=== PATIENT | female | born 1970 | race Caucasian/White ===

== ENCOUNTER 2019-02-27 11:15 | Day surgery (SDC) | payer BC ==
[2019-02-24 10:00] VITALS: BMI 44.4
[~2019-02-27 11:15] MED LIST: DEXAMETHASONE SOD PHOSPHATE 10 MG/ML 1 ML VIAL IV ONE; HYDROmorphone 0.5 MG/0.5 ML SYRINGE IVP PRN; LACTATED RINGERS 1,000 ML IV SCH; MIDAZOLAM 2 MG/2 ML VIAL IV PRN; ONDANSETRON 4 MG/2 ML VIAL IVP ONE; SCOPOLAMINE 1.5MG/72HR PATCH TRANSDERM ONE; ceFAZolin 3 GM in SODIUM CHLORIDE 0.9% 100 ML IVPB ONE
[2019-02-27] MEDS ORDERED: LIDOCAINE 1% 20 ML VIAL (10MG/ML) FOR IV START INTRADERMA ONE (11:59)
[2019-02-27] MEDS ORDERED: PHENYLEPHRINE-0.9% NACL SYG 1 MG/10 ML SYRINGE ONE (12:53)
[2019-02-27] MEDS ORDERED: fentaNYL (PF) 50 MCG/ML 2 ML AMP ONE (12:53)
[2019-02-27] MEDS ORDERED: PROPOFOL 10 MG/ML 20 ML VIAL IV ONE (12:53)
[2019-02-27] MEDS ORDERED: MIDAZOLAM 2 MG/2 ML VIAL ONE (12:53)
[2019-02-27] MEDS ORDERED: HYDROmorphone (PF) 1 MG/ML ONE (12:53)
[2019-02-27] MEDS ORDERED: SUCCINYLCHOLINE CHLORIDE VIAL 200 MG/10 ML VIAL IV ONE (12:53)
[2019-02-27] MEDS ORDERED: LIDOCAINE 1% INJ 10MG/ML (20 ML MDV) ONE (12:53)
[2019-02-27] MEDS ORDERED: LACTATED RINGERS 1,000 ML IV ONE (15:12)
--- NOTE | 2019-02-27 15:28 | XR ---
Fluoroscopy INDICATION: Pain FINDINGS: Images obtained: 1. IMPRESSIONS: 1. Documentation of fluoroscopy.
--- NOTE | 2019-02-27 15:29 | FL ---
Fluoroscopy INDICATION: Pain FINDINGS: Fluoroscopy time: 7 seconds. Images obtained: 1. IMPRESSIONS: 1. Documentation of fluoroscopy.
[2019-02-27] MEDS ORDERED: ONDANSETRON 4 MG/2 ML VIAL IVP ONE (15:37)
[2019-02-27 15:38] VITALS: TEMP 97
--- NOTE | 2019-02-27 15:40 | P.OP ---
Date of Procedure: 02/27/19 Preoperative Diagnosis: 1. Right insertional Achilles tendinitis 2. Right gastorcnemius equinus contracture 3. BMI 44.4 Postoperative Diagnosis: Same Procedure(s) Performed: 1. Right insertional Achilles tendon debridement, Ursula's excision, and repa ir of Achilles tendon 2. Right FHL tendon transfer 3. Right gastrocnemius recession 4. Application of short leg splint by physician, right leg Anesthesia: VENTURA, regional Surgeon: Elías Cullen Pharmacy Picking Technician #1: Clara Hill Estimated Blood Loss (ml): 10 IV fluids (ml): 1,300 Pathology: none sent Condition: stable Disposition: PACU Indications for Procedure: The patient is a very pleasant previously healthy 48-year-old female with a medical history significant for having a BMI of 44 who presented to my office having failed over 1 year nonsurgical treatment for insertional Achilles tendinitis. She had previously had surgery on the left side I another physician and was well aware of the surgical procedure, recovery, risks etc. having failed over a year nonsurgical treatment she requested surgery. An MRI was obtained which showed insertional Achilles tendinitis, retrocalcaneal bursitis, and an enlarged Ursula's deformity. I discussed alternative treatments including nonsurgical modalities including stretching, use of a heel lift, physical therapy, NSAID medications, and activity modification. We also discussed surgery. The patient requested going forward with surgery. We discussed potential risks and competitions of surgery including but not limited to risk of anesthesia, superficial infection, deep infection, delayed wound healing, superficial wound necrosis, deep wound necrosis, rupture of her surgical repair, continued or worsened pain, recurrence, generalized to satisfaction with surgery, DVT, PE, other medical complications, and inability to regain preinjury level of function, and possibly loss of life or limb. The patient understands that due to her BMI of 44 she didn't increased risk of having a complication. She provided her verbal and written consent to go forward with surgery. Description of Procedure: The patient was identified in preoperative holding and the correct right leg was marked with my initials. I reviewed the consent form with the patient and her . All their questions were answered. The patient was given a popliteal nerve block by anesthesia. She was then brought back to the operating room. We'll stoma osvaldo she was given a general anesthetic and preoperative antibiotics by anesthesia. A tourniquet was applied to the proximal aspect of the right leg. The patient was then flipped into the prone position on the OR table. Her chest was supported with gel bolsters. All bony prominences were well-padded area the right leg was then prepped and draped in standard sterile fashion. Prior to starting surgery timeout was performed identifying the correct patient, operative extremity, and procedure. The patient's leg was then elevated, exsanguinated with an Esmarch bandage, and the tourniquet was inflated to 250 mmHg. I began by outlining a J type incision over the posterior tuberosity of the calcaneus with a longitudinal limb over the medial aspect of the Achilles tendon in the horizontal limb over the posterior tuberosity of the calcaneus just distal to the palpable spur. Skin incision was made with a scalpel and I took care not to undermine the skin incisions. A full-thickness flap was developed down to the level of the peritenon. The peritenon was sharply incised and then elevated off the Achilles tendon. The Achilles tendon was split in the distal midline down to the posterior tuberosity of the calcaneus and the medial and lateral leaflet was elevated sharply off of the tuberosity. The degenerative portion of the Achilles tendon was debrided back until healthy-appearing tendon remained. In my estimation over 50% of the Achilles tendon was debrided. The retrocalcaneal bursa appeared inflamed and was sharply debrided. A micr osagittal saw was used to remove the insertional spur and Ursula's deformity. The wound was thoroughly irrigated. The fascia over the FHL tendon was incised. The FHL tendon was identified. The ankle and big toe or plantarflexed and the tendon was cut as distal as possible. The tendon was whipstitched and sized 6 mm. The Portion of the posterior tuberosity was then marked out with the double row speed bridge repair. Anterior to this and central within the posterior tuberosity a Beath pin was placed for the FHL transfer from dorsal to plantar through the calcaneus and out the plantar foot. A cannulated reamer was used too great a path for the FHL tendon. The tendon and suture were passed plantarly. The sutures were tensioned and a Bio-Tenodesis screw was placed in the calcaneus nicely securing the FHL tendon. The bio composite screws with fiber taper placed in the proximal row. The sutures were passed through the medial and lateral limbs of the Achilles tendon. They were tensioned and then secured distally with the swivel lock suture anchors nicely reapproximating the Achilles footprint on the calcaneus. The Achilles repair appeared gomez. The wound was thoroughly irrigated. The midline split was closed with interrupted 2-0 Vicryl. A final fluoroscopic image was taken. At this point a Silfverskiold test was performed and there was a significant equinus contract ure. To take tension off of the repair a gastrocnemius recession was performed. A longitudinal incision was centered the posterior medial calf. Skin incision was made with a scalpel. Dissection was carried through the subcutaneous tissue with tenotomy scissors. The superficial fascia was sharply incised. The gastrocnemius aponeurosis was identified and sharply released. The plantaris tendon was cut. The wound was thoroughly irrigated and closed in layers with 2- 0 Vicryl in the deep subcu and 3-0 Monocryl subcuticular stitch in the skin. The Achilles wound was thoroughly irrigated. The peritenon was closed with a running 2-0 Vicryl. The deep subcu was reapproximated using 3-0 Monocryl. The skin was closed using 3-0 nylon Allgower modification of the Donati stitch. A sterile dressing was applied. The tourniquet was let down. A well-padded bulky Knox splint was placed with the ankle in gravity equinus to take tension off the repair. The patient was then flipped from the prone position into the [facility] in the supine position. She was brought to recovery having helped procedure well. Clara Hill PA-C was required as a skilled retail sales assistant for patient positioning, surgical exposure, retraction, repair of Achilles tendon, closure of wound, and application of splint. Plan: The patient can discharge home as an outpatient. She is transferred we nonweightbearing on her operative leg. She'll be treated with aspirin then 25 mg twice daily for DVT prophylaxis.
[2019-02-27] MEDS ORDERED: PROMETHAZINE INJ 25 MG/ML 1 ML VIAL IVPB ONE (16:24)
[2019-02-27 16:45] VITALS: RESP 18
[2019-02-27 18:36] VITALS: PULSE 66
[2019-02-27 19:01] VITALS: BP 101/65
== END 2019-02-27 19:15 | disposition home or self-care (01) ==
LOC: OR 11:15
PROVIDERS: ATTEND Orthopaedic Surgery
DX: M76.61 Achilles tendinitis, right leg (principal); M62.461 Contracture of muscle, right lower leg; M92.61 Juvenile osteochondrosis of tarsus, right ankle; M77.51 Other enthesopathy of right foot and ankle; K21.9 Gastro-esophageal reflux disease without esophagitis; Z79.899 Other long term (current) drug therapy; Z87.891 Personal history of nicotine dependence; Z79.1 Long term (current) use of non-steroidal anti-inflammatories (NSAID); Z82.49 Family history of ischemic heart disease and other diseases of the circulatory system
CPT/HCPCS: 27652; 27687; 27635; 81025; 73650; C1713; J2250; J0330; J1100; J2550; J0690; J2405; J2001; J3010; J1170; J2370; J2704